=== PATIENT | female | born 1965 | race Caucasian/White ===

== ENCOUNTER → 2017-02-28 16:33 | Outpatient (CLI) | payer MEDICAID | END | disposition home or self-care (01) | LOC: D.MAMMO 16:00 | DX: Z12.31 Encounter for screening mammogram for malignant neoplasm of breast (principal) ==

== ENCOUNTER 2018-09-11 11:26 | Observation (INO) | payer OTHER ==
[~2018-09-11] VITALS: Ht 167.6 cm; Wt 101.8 kg
--- NOTE | ~2018-09-11 | EC ---
PATIENT:OLIVIA MACKEY DATE OF SERVICE: 09/11/18 SEX: F MEDICAL RECORD: [id number] DATE OF : 67 [facility] AGE OF PATIENT: 53 ADMISSION DATE: 09/11/18 REFERRING PHYSICIAN: INTERPRETING PHYSICIAN: NIURKA BLANCHARD MD ECHOCARDIOGRAM REPORT ECHO CHARGES 4 ECHO COMPLETE Date: 09/11/18 CLINICAL DIAGNOSIS: CP ECHOCARDIOGRAPHIC MEASUREMENTS (adult normal given) AC root (d.<3.7cm) 2.4 cm LV Septum d (<1.2 cm> 0.8 cm Valve Excursion 1.7 cm LV Septum (systole) 1.4 cm Left Atria (s.<4.0cm> 3.2 cm LVPW d(<1.2cm) 0.8 cm RV (d.<2.3cm) 2.8 cm LVPW (sytole) 1.4 cm LV diastole(<5.6CM) 4.9 cm MV E-F(>70mm/sec) cm LV systole 3.0 cm LVOT Diameter 1.9 cm MV exc.(>10mm) cm Est.ejection fraction (50-75%) % DOPPLER: LVIT cm/sec A 62 cm/sec E 90 cm/sec LA cm/sec RVSP 28.9 mmHg LVOT 90 cm/sec AOP1/2T m/s Asc. Ao 126 cm/sec RVOT 51 cm/sec RA cm/sec PA 82 cm/sec AV Gradient Peak 6.3 mmHg AV Mean 3.3 mmHg AV Area 2.0 cm MV Gradient Peak 3.7 mmHg MV Mean 1.0 mmHg MV Area cm COMMENTS: Waste Treatment Operator: Maryanne MARSHALLRANJEETLAUREL [facility] Child Welfare Manager: 1 Dr. Blanchard TAPE# POACS Pericardial Effusion N DATE OF SERVICE: 09/11/2018 PROCEDURE: Echocardiogram. FINDINGS: 1. Left ventricular chamber size is within normal limits. Left ventricular systolic function is normal. Overall ejection fraction estimated at 60%. 2. Left atrium, right atrium, and right ventricle chamber sizes are within normal limits. 3. Valvular structures have normal structure and motion. ECHOCARDIOGRAM REPORT [id number] OLIVIA MACKEY 4. Doppler interrogation reveals trace mitral regurgitation, mild tricuspid regurgitation, no other valvular insufficiency or stenosis. Pulmonary systolic pressure is normal at 29 mmHg. 5. No evidence of pericardial effusion or left ventricular thrombus. TRANSINT:[id number] Voice Confirmation ID: [id number] DOCUMENT ID: [id number] NIURKA BLANCHARD MD CC: [id number] DICTATION DATE: 09/12/18 1047 RETAIL EVENT ASSISTANT: 09/12/18 1317 ADM IN [facility] [address] [id number]
--- NOTE | ~2018-09-11 | OP ---
PATIENT NAME: OLIVIA MACKEY MEDICAL RECORD: [id number] :67 LOCATION:[facility] ADMISSION DATE:09/11/18 SURGEON: NIURKA BLANCHARD MD DATE OF OPERATION: 09/12/2018 PROCEDURES: 1. PTCA and stent of LAD. 2. Left heart catheterization. 3. Selective coronary angiography. 4. Left ventriculogram. INDICATIONS: Angina and coronary artery disease. PROCEDURE IN DETAIL: After informed consent was obtained and after a detailed explanation of the risks, benefits as well as alternative therapies, the patient elected to proceed with angiogram and angioplasty. The right radial area was prepped and draped in normal sterile fashion. Right radial artery was cannulated via modified Seldinger technique with placement of 6-Croatian sheath. All catheters exchanged through this sheath. FINDINGS: Left ventriculogram was performed in standard 30-degree TRONCOSO view, reveals good cardiac wall motion throughout all segments. Overall ejection fraction estimated 60%. SELECTIVE CORONARY ANGIOGRAPHY: 1. Left main is with no significant angiographic disease. 2. Left anterior descending has 75% to 80% stenosis in the mid vessel. 3. Left circumflex has mild irregularities, but no flow-limiting stenosis. 4. Right coronary has mild irregularities, but no flow-limiting stenosis. PTCA AND STENT OF THE LAD: The stent used was a 3.0 x 15-mm Cobra. Result was 0% residual stenosis. OVERALL IMPRESSION: Successful PTCA and stent of the LAD going from 75% to 80% initial stenosis to 0% residual. TRANSINT:[id number] Voice Confirmation ID: [id number] DOCUMENT ID: [id number] NIURKA BLANCHARD MD CC: [id number] DICTATION DATE: 09/12/18 1157 NET SORTER: 09/12/18 1403 ADM IN [facility] [address] [place] [address]
--- NOTE | ~2018-09-11 | HEMODYNAMI ---
PATIENT:OLIVIA MACKEY MEDICAL RECORD: [id number] : 67 LOCATION:[address] ADMISSION DATE: 09/11/18 Generatedon:09/12/201812:01 Patient name: OLIVIA MACKEY Patient #: [id number] SSN: : 1965 Date of study: 09/12/2018 Page: Of Hemodynamic Procedure Report Patient Data Patient Demographics Procedure consent was obtained First Name: OLIVIA Gender: Female Last Name: NARENDRA : 1965 Patient #: [id number] Age: 53 year(s) Race: Unknown Additional ID: [id number] Contact details Address: [address] [place] [address] State: [place] City: [facility] Zip code: [address] Past Medical History Allergies: No known allergies Admission Admission Data Admission Date: 09/11/2018 Admission Time: 12:14 Room #: [facility] Height (in.): 65.75 BSA: 2.1 (m2) Height (cm.): 167 BMI: 36.57 (kg/m2) Weight (lbs.): 224.87 Weight (kg.): 102 Lab Results Lab Result Date: 09/12/2018 Lab Result Time: 0:00 Biochemistry Name Units Result Min Max BUN mg/dl 17 --(---*)-- 7 18 Creatinine mg/dl 0.8 --(-*--)-- 0.6 1.3 CBC Name Units Result Min Max Hematocrit % 41.1 -*(----)-- 42 54 Hemoglobin g/dl 13.4 -*(----)-- 13.5 17.5 Procedure Procedure Types Cath Procedure Diagnostic Procedure C [facility] w/Coronaries Sedation Charges Moderate Sedation up to 15 minutes PCI Procedure Coronary Stent Coronary Stent Initial Procedure Description Procedure Date Procedure Date: 09/12/2018 Procedure Start Time: 11:43 Procedure End Time: 11:56 Procedure Staff Name Function Dori Sumner RT Scrub Derrick Silverio RN Nurse Dominik Blanchard MD Performing Physician Lisa Elise RT Monitor Procedure Data Cath Procedure Fluoroscopy Diagnostic fluoroscopy Total fluoroscopy Time: 3.3 time: 3.3 min min Diagnostic fluoroscopy Total fluoroscopy dose: 662 dose: 662 mGy mGy Contrast Material Contrast Material Type Amount (ml) Isovue 300 71 Entry Location Entry Primary Successful Side Size Upsize Upsize Entry Closure Succes sful Closure Location (Fr) 1 (Fr) 2 (Fr) Remarks Device Remarks Radial Right 6 Fr artery Short Estimated blood loss: 10 ml Diagnostic catheters Device Type Used For End Catheter Placement DIAGNOSTIC [place] 110cm 5 Procedure Fr catheter ([id number]) Procedure Complications No complications Procedure Medications Medication Administration Route Dosage Oxygen etCO2 Nasal cannula 2 l/min Lidocaine 2% added to field 20 Heparin Flush Bag added to field 2 bags (1000units/500ml NS) 0.9% NaCl I.V. 100 ml/hr Radial Cocktail I.A. 1 syringe (Verapamil 2mg/Nitro 400mcg/Heparin 1500units) Versed I.V. 1 mg Fentanyl I.V. 50 mcg Versed I.V. 1 mg Fentanyl I.V. 50 mcg Heparin Bolus I.V. 4000 units Integrilin (Bolus I.V. 9 ml 2mg/ml) Versed I.V. 1 mg Fentanyl I.V. 50 mcg Plavix P.O. 600 mg Hemodynamics Rest BSA: 2.1 (m2) HGB: 13.4 (g/dl) O2 Consumption: Estimated: 207.69 (ml/min) O2 Con sumption indexed: Estimated:98.9 (ml/min/m) Heart Rate: 74 (bpm) Snapshots Pre Cath Intra NCS Post Cath Vital Signs Time Heart Resp SPO2 etCO2 NIBP (mmHg) Rhythm Pain Sedation Rate (ipm) (%) (mmHg) Status Level (bpm) 11:33:43 73 16 97 43.3 136/70(112) NSR 0 (11) 10(A) , No pain 11:38:03 69 13 95 46.2 132/65(96) NSR 0 (11) 10(A) , No pain 11:42:22 64 14 94 42.6 123/64(86) NSR 0 (11) 9(A) , No pain 11:46:34 79 17 95 43.3 118/65(94) NSR 0 (11) 9(A) , No pain 11:51:37 70 15 94 0 122/73(97) NSR 0 (11) 9(A) , No pain 11:55:51 69 18 95 45.5 137/63(101) NSR 0 (11) 10(A) , No pain Medications Time Medication Route Dose Verified Delivered Reason Not es Effectiveness by by 11:35:05 Oxygen etCO2 2 l/min Dominikjurgen Manie used for Nasal Santo Silverio RN procedure cannula 11:35:43 Lidocaine 2% added 20ml Dominik Lehman for local to vial Santo Blanchard MD anesthetic field 11:35:50 Heparin Flush added 2 bags Dominik Lehman used for Bag to Santo Blanchard MD procedure (1000units/500ml field NS) 11:35:59 0.9% NaCl I.V. 100 Dominik Buffie Per physician ml/hr Santo Silverio RN 11:36:53 Versed I.V. 1 mg Dominik Manie for sedation Santo Silverio RN 11:36:59 Fentanyl I.V. 50 mcg Dominik Manie for sedation Santo Silverio RN 11:40:42 Versed I.V. 1 mg Dominik Buffie for sedation Santo Silverio RN 11:40:46 Fentanyl I.V. 50 mcg Dominik Manie for sedation Santo Silverio RN 11:43:38 Radial Cocktail I.A. 1 Dominik Gudinorey for (Verapamil syringe Santo Blanchard MD vasodilation 2mg/Nitro 400mcg/Hepari 11:44:20 Versed I.V. 1 mg Dominik Buffie for sedation Santo Silverio RN 11:44:24 Fentanyl I.V. 50 mcg Dominik Manie for sedation Santo Silverio RN 11:47:19 Heparin Bolus I.V. 4000 Dominik Buffie for carley ified units Santo Silverio RN anticoagulation with dr blanchard 11:48:27 Integrilin I.V. 9 ml Dominik Meza for was katerine 1 (Bolus 2mg/ml) Santo Silverio RN antiplatelet ml of therapy vial 11:55:04 Plavix P.O. 600 mg Dominik Meza for Santo Silverio RN antiplatelet therapy Procedure Log Time Note 11:14:55 Signed procedure consent form obtained from patient. 11:14:57 Time tracking: Regular hours (M-F 7:00 - 5:00) 11:14:57 Diagnostic Cath status Urgent 11:15:02 Plan of Care:Hemodynamics will remain stable., Cardiac rhythm will remain stable., Comfort level will be maintained., Respiratory function will remain adequate., Patient/ family verbilizes understanding of procedure., Procedure tolerated without complication., Recovers from procedure without complications.. 11:17:20 Patient allergic to No known allergies 11:17:41 Lab Result : Hemoglobin 13.4 g/dl 11::41 Lab Result : Hematocrit 41.1 % 11:17:41 Lab Result : BUN 17 mg/dl 11:17:41 Lab Result : Creatinine 0.8 mg/dl 11:17:49 Patient Weight : 224.87 lbs 11:17:53 Patient Height : 65.75 inches 11:18:21 Derrick Silverio RN sent for patient. Start room use. 11:26:14 Patient received from Med II to CCL 2 Alert and oriented. Tansferred to table in Supine position. 11:26:16 Correct patient and procedure confirmed by team. 11:26:16 Warm blankets applied, and richmond hugger turned on for patient comfort. 11:26:17 ECG and BP/O2 sat monitors applied to patient. 11:32:31 Full Disclosure recording started 11:32:35 Vital chart was started 11:33:50 Baseline sample Acquired. 11:33:53 Rhythm: sinus rhythm 11:33:56 Pre-op teaching completed and patient verbalized understanding. 11:33:56 Pre-procedure instructions explained to patient. 11:33:59 Family in patients room. 11:34:00 Patient NPO since Midnight. 11:34:02 Is patient on blood thinner?No 11:34:03 Patient diabetic? No. 11:34:33 Is the patient allergic to Iodine/contrast media? No. 11:34:36 Previous problem with sedation/anesthesia? No ? 11:34:37 Snore? Yes 11:34:39 Sleep apnea? No 11:34:41 Deviated septum? No 11:34:42 Opens mouth fully? Yes 11:34:44 Sticks out tongue? Yes 11:34:46 Airway obstruction? No ? 11:34:48 Dentures? No ? 11:34:51 Patient not . Patient has had hysterectomy. 11:34:56 Modified Obdulio's test Ulnar < 7 seconds 11:34:58 Patient pain scale 0/10 ?. 11:35:02 IV patent on arrival in left forearm with 0.9% NaCl at [facility]. 11:35:04 Lab results completed and on chart. 11:35:05 Oxygen 2 l/min etCO2 Nasal cannula was administered by Derrick Silverio RN; used for procedure; 11:35:06 Right Radial & Right Groin area was prepped with chlora-prep and draped in sterile fashion 11:35:07 Alarms reviewed by R. N. 11:35:08 Sharps counted by scrub and verified by R.N. 11:35:43 Lidocaine 2% 20ml vial added to field was administered by Dominik Blanchard MD; for local anesthetic; 11:35:50 Heparin Flush Bag (1000units/500ml NS) 2 bags added to field was administered by Dominik Blanchard MD; used for procedure; 11:35:59 0.9% NaCl 100 ml/hr I.V. was administered by Derrick Silverio RN; Per physician; 11:36:06 --------ALL STOP TIME OUT------ 11:36:07 Final Timeout: patient, procedure, and site verified with staff and physician. All members of the team are in agreement. 11:36:08 Right Radial & Right Groin site verified by team. 11:36:10 Maximum allowable Isovue 300 dose 300ml. Physician notified. (300ml for normal creatinines. For patients with creatinine of 1.7 or higher multiply weight(kg) x 5 divided by creatinine.) 11:36:13 Fire Safety Assessment: A--An alcohol-based skin anteseptic being used preoperatively., C--Open oxygen or nitrous oxide is being used., D--An ESU, laser, or fiber-optic light is being used. 11:36:17 Sedation plan: IV Moderate Sedation Medication:Versed, Fentanyl 11:36:20 Physical assessment completed. ASA score P 2 - A patient with mild systemic disease as per Dominik Blanchard MD. 11:36:53 Versed 1 mg I.V. was administered by Derrick Silverio RN; for sedation; 11:36:59 Fentanyl 50 mcg I.V. was administered by Derrick Silverio RN; for sedation; 11:40:28 Use device set Radial Dx or PCI 11:40:29 Bag Decanter (2001S) opened to sterile field. 11:40:29 ACIST Syringe (27228) opened to sterile field. 11:40:30 ACIST Hand Control (21557) opened to sterile field. 11:40:31 Tegaderm 4 x 4 (1626W) opened to sterile field. 11:40:31 ACIST Manifold (46953) opened to sterile field. 11:40:33 DIAGNOSTIC WIRE .035 260cm J wire (432437) opened to sterile field. 11:40:33 Medline Cath Pack ([id number]) opened to sterile field. 11:40:34 MBrace Wrist Support (308362768) opened to sterile field. 11:40:35 SHEATH 6FR Slender (23-8600) opened to sterile field. 11:40:42 Versed 1 mg I.V. was administered by Derrick Silverio RN; for sedation; 11:40:46 Fentanyl 50 mcg I.V. was administered by Derrick Silverio RN; for sedation; 11:43:14 Procedure started. 11:43:16 Zero performed for pressure channel P1 11:43:22 Local anesthetic to right radial artery with Lidocaine 2% by Dominik Blanchard MD.INITIAL ACCESS ONLY 11:43:29 A 6 Fr Short sheath was inserted into the Right Radial artery 11:43:38 Radial Cocktail (Verapamil 2mg/Nitro 400mcg/Heparin 1500units) 1 syringe I.A. was administered by Dominik Blanchard MD; for vasodilation; 11:43:44 A DIAGNOSTIC [place] 110cm 5 Fr catheter (421474) was advanced over the wire and used for Procedure. 11:43:52 LV gram done using TRONCOSO 11:43:54 Injector settings: Ml/sec: 5, Volume: 15, 11:44:18 EF : 60 % 11:44:20 Versed 1 mg I.V. was administered by Derrick Silveroi RN; for sedation; 11:44:24 Fentanyl 50 mcg I.V. was administered by Derrick Silverio RN; for sedation; 11:44:37 RCA angiography performed. 11:45:13 LCA angiography performed. 11:45:24 Catheter exchanged over wire. 11:46:06 CHOICE PT Extra Support 182cm wire ([id number]) opened to sterile field. 11:46:06 INFLATOR Merit BasixCompak (LU5013) opened to sterile field. 11:46:07 GUIDE 6FR XBLAD 3.5 catheter (84637166) opened to sterile field. 11:46:38 6 Fr XBLAD 3.5 guide catheter was inserted over the wire 11:47:19 Heparin Bolus 4000 units I.V. was administered by Derrick Silverio RN; for anticoagulation; verified with dr blanchard 11:48:00 CHOICE ES 182 wire advanced. 11:48:27 Integrilin (Bolus 2mg/ml) 9 ml I.V. was administered by Derrick Silverio RN; for antiplatelet therapy; wasted 1 ml of vial 11:48:40 CHOICE PT Extra Support 182cm wire ([id number]) opened to sterile field. 11:48:50 Wire removed. 11:49:04 NEW WIRE ADVANCED 11:49:36 Wire advanced across lesion. 11:51:36 Place stent Inflation Number: 1 A COBRA RX 3.0 X 15 Stent was prepped and advanced across the Mid LAD. The stent was deployed at 11 CHRISTOPHER for 0:00 (min:sec). 11:51:55 Inflation number: 2 The stent balloon was then re-inflated across the Mid LAD to 15 CHRISTOPHER for 0:00 (min:sec). 11:52:01 Wire removed. 11:52:01 Stent catheter was removed intact over wire. 11:52:18 Guide catheter removed. 11:52:50 Procedure ended.(Physican Out) 11:54:00 TR BAND Standard ([id number]) opened to sterile field. 11:54:07 Fluoroscopy time 03.30 minutes. 11:54:11 Flurop Dose total: 662 11:54:11 Fluoroscopy dose: 662 mGy 11:54:14 Contrast amount:Isovue 300 71ml. 11:54:15 Sharps counted by scrub and verified by R.N. 11:54:17 TR band inflated with 11cc of air. 11:54:20 Post-procedure physical assessment completed. ASA score P 2 - A patient with mild systemic disease as per Dominik Blanchard MD. 11:54:24 Post procedure rhythm: sinus rhythm 11:54:26 Estimated blood loss: 10 ml 11:54:27 Patient needs reinforcement of post procedure teaching. 11:54:27 Post procedure instruction explained to patient.Patient verbalizes understanding. 11:54:48 Procedure type changed to Cath procedure, Diagnostic procedure, LHC, LHC w/Coronaries, Sedation Charges, Moderate Sedation up to 15 minutes, PCI procedure, Coronary Stent, Coronary Stent Initial 11:55:04 Plavix 600 mg P.O. was administered by Derrick Silverio RN; for antiplatelet therapy; 11:55:05 Procedure and supply charges have been captured, reviewed, submitted and are correct. 11:55:08 Procedure Complication : No complications 11:56:33 Vital chart was stopped 11:56:33 See physician's report for complete and final results. 11:56:35 Report given to Pre/Post Procedure Room. 11:56:37 Patient transfered to Pre/Post Procedure Room with Bed. 11:56:38 Procedure ended. 11:56:38 Full Disclosure recording stopped 11:56:41 End room use (Document Last) Intervention Summary Intervention Notes Time ActionType Lesion and Equipment Action# Pressure Duration Attributes Used 11:51:36 Place stent Mid LAD COBRA RX 1 11 00:00 3.0 X 15 Stent 11:51:55 Reinflate Mid LAD COBRA RX 2 15 00:00 stent 3.0 X 15 balloon Stent Device Usage Item Name Manufacture Quantity Catalog Number Hospital Part Current Minimal Lot# / Charge Number Stock Stock Serial# Code ACIST Syringe Acist 1 42063 122994 588766 889015 20 (44890) Medical Systems Inc Bag Decanter Microtek 1 2001S 923304 01647 440261 5 (2001S) Medical Inc. ACIST Hand Acist 1 48324 366897 415577 123506 5 Control Medical (34026) Systems Inc ACIST Manifold Acist 1 21459 039016 905431 563873 5 (94462) Medical Systems Inc Tegaderm 4 x 4 3M 1 1626W 878660 908629 083472 5 (1626W) Medline Cath Medline 1 [id number] 322032 61137 695462 5 Pack ([id number]) DIAGNOSTIC [place] 1 046878 049851 797137 712991 30 WIRE .035 260cm J wire (139698) MBrace Wrist Advanced 1 140-0250-00 740405 19717 924477 5 Support Vascular ([id number]) Dynamics SHEATH 6FR Terumo 1 [id number] 625350 769109 896845 5 Slender (80-1900) DIAGNOSTIC Terumo 1 04-9480 543744 370561 167444 5 [place] 110cm 5 Fr catheter (305892) INFLATOR Merit Merit 1 TT3168 248013 044340 475722 15 [facility] Medical (DJ3733) CHOICE PT [place] 2 [id number] 330856 835997 923022 5 Extra Support Scientific 182cm wire ([id number]) GUIDE 6FR Cardinal 1 [id number] 970010 371183 845214 10 XBLAD 3.5 Health catheter (26004595) COBRA RX 3.0 X Celonova 1 [id number] 270027 [id number] 288132 0 [id number] 15 stent Biosciences (218-02-74106) TR BAND Terumo 1 [id number] 856275 815576 900331 40 Standard ([id number]) Signature Audit [place] Stage Time Signature Unsigned Intra-Procedure 09/12/2018 Lisa Elise 11:57:01 AM RT(R) RT(R) 09/12/2018 11:59:37 AM Intra-Procedure 09/12/2018 Lisa Elise 12:01:05 PM RT(R) Signatures Monitor : Lisa Elise Signature : RT Date : Time : [address] [place] [address]
--- NOTE | ~2018-09-11 | ST ---
PATIENT:OLIVIA MACKEY MEDICAL RECORD: [id number] SEX: F [facility] ORDER #: ADMISSION DATE: 09/11/18 AGE OF PATIENT: 53 REFERRING PHYSICIAN: INTERPRETING PHYSICIAN: NIURKA BLANCHARD MD DATE OF SERVICE: 09/12/2018 PROCEDURE: Exercise stress test INDICATION: Chest pain compatible with angina. She was exercised on standard Mendez protocol for 3 minutes, terminated due to ST changes and chest pressure. She did develop chest pressure compatible with angina just like that, they brought her in, at the 3-minute david with [address] depression. OVERALL IMPRESSION: Positive for inducible ischemia stage I Mendez with ST depression and reproducibility of anginal symptomatology. This puts her at high risk. We would proceed with coronary angiography as a followup study. TRANSINT:[id number] Voice Confirmation ID: [id number] DOCUMENT ID: [id number] NIURKA BLANCHARD MD CC: [id number] DICTATION DATE: 09/12/18 1005 INTERNATIONAL TRADE TEACHER: 09/13/18 0511 DIS IN 09/12/18 [facility] [address] [id number]
[2018-09-11] MEDS ORDERED: PROZAC10 MG PO (11:35)
[2018-09-11] MEDS ORDERED: LISINOPRIL10 MG PO (11:35)
[2018-09-11] MEDS ORDERED: OMEPRAZOLE20 M1 PO (11:36)
[2018-09-11] MEDS ORDERED: NAPROSYN500 MG PO (11:36)
[2018-09-11 11:57] LABS: BASOPHILS 0.4 % (0-2); EOSINOPHILS 3.1 % (0-7); HEMATOCRIT 44.3 % (36.0-48.0); HEMOGLOBIN 14.5 g/dL (12-16); IMMATURE GRANULOCYTES 0.1 % (0-5); LYMPHOCYTES 38.7 % (15-50); MCH 31.6 pg (26.0-34.0); MCHC 32.7 g/dL (31.0-37.0); MCV 96.5 fL (80.0-100.0); MEAN PLATELET VOLUME 10.4 fL (7.4-10.4); MONOCYTES 5.4 % (2-11); NEUTROPHILS 52.3 % (40-80); PLATELET COUNT 244 10x3/uL (130-400); RBC 4.59 10x6/uL (4.00-5.40); RDW 13.9 % (11.5-14.5)
[2018-09-11 12:09] LABS: APTT 35.6 SECONDS (22.8-39.4); INR 0.99 (0.85-1.17); PROTIME 12.6 SECONDS (11.6-15.0)
[2018-09-11 12:10] VITALS: BP 133/68
[2018-09-11 12:14] LABS: ALKALINE PHOSPHATASE 82 U/L (46-116); ALT (SGPT) 34 U/L (10-68); BILIRUBIN - TOTAL 0.34 mg/dL (0.2-1.3); CALC OSMOLALITY 282 mosm/kg (275-300); CALCIUM 9.5 mg/dL (8.5-10.1); CARBON DIOXIDE 29.2 mmol/L (21.0-32.0); CHLORIDE - SERUM 105 mmol/L (98-107); CREATININE - SERUM 0.9 mg/dL (0.6-1.3); GLUCOSE 98 mg/dL (74-106); POTASSIUM - SERUM 4.2 mmol/L (3.5-5.1); PROTEIN - SERUM 7.2 g/dL (6.4-8.2); SODIUM 141 mmol/L (136-145); UREA NITROGEN 19 mg/dL (7-18); eGFR NON AFRICAN AMERICAN 70 mL/min (90-120)
[2018-09-11 12:20] VITALS: BP 137/82
[2018-09-11 12:25] LABS: CKMB 1.4 U/L (0.0-3.6); CREATINE KINASE 125 UL (21-215); TROPONIN-I < 0.017 ng/mL (0.000-0.060)
[2018-09-11 12:40] VITALS: BP 138/74
--- NOTE | 2018-09-11 13:20 | NUR ---
RECEIVED PT VIA W/C FROM ER TO ROOM 2119 AAOX4 RESP UNLABORED SKIN W/D COLOR WNL DENIES ANY PAIN AT THIS TIME VSS SALINE LOCK INTACT TO LT WRIST WITH 20 GA IV CATHETER SITE FREE OF REDNESS OR EDEMA
[2018-09-11] MEDS ORDERED: NAPROXEN SODIU550 M1 PO (13:40)
[2018-09-11 13:43] VITALS: BP 131/86; Ht 167.6 cm; Wt 101.8 kg
[2018-09-11 15:40] VITALS: BP 147/70
[2018-09-11 18:42] LABS: CREATINE KINASE 98 UL (21-215); TROPONIN-I < 0.017 ng/mL (0.000-0.060)
--- NOTE | 2018-09-11 19:46 | NUR ---
RESUMING PATIENT CARE. PATIENT IS ALERT AND ORIENTED. RESTING COMFORTABLY INBED. RESPIRATIONS ARE EVEN AND UNLABORED. NO S/S OF DISTRESS. NO C/O PAIN. NEEDS MET. CALL LIGHT WITHIN REACH. WILL CPOC.
[2018-09-11 20:00] VITALS: BP 127/62
[2018-09-12] VITALS: BP 134/67
[2018-09-12 00:52] LABS: CKMB 1.1 U/L (0.0-3.6); CREATINE KINASE 90 UL (21-215)
[2018-09-12 00:56] LABS: TROPONIN-I < 0.017 ng/mL (0.000-0.060)
[2018-09-12 04:00] VITALS: BP 127/67
[2018-09-12 04:38] LABS: BASOPHILS 0.3 % (0-2); EOSINOPHILS 2.9 % (0-7); HEMATOCRIT 41.1 % (36.0-48.0); HEMOGLOBIN 13.4 g/dL (12-16); IMMATURE GRANULOCYTES 0.2 % (0-5); LYMPHOCYTES 36.2 % (15-50); MCH 31.3 pg (26.0-34.0); MCHC 32.6 g/dL (31.0-37.0); MEAN PLATELET VOLUME 10.6 fL (7.4-10.4); MONOCYTES 6.9 % (2-11); NEUTROPHILS 53.5 % (40-80); PLATELET COUNT 249 10x3/uL (130-400); RBC 4.28 10x6/uL (4.00-5.40); RDW 13.8 % (11.5-14.5)
[2018-09-12 04:56] LABS: WBC 9.6 10x3/uL (4.8-10.8)
[2018-09-12 04:59] LABS: ALBUMIN 3.3 g/dL (3.4-5.0); ALKALINE PHOSPHATASE 73 U/L (46-116); ALT (SGPT) 30 U/L (10-68); BILIRUBIN - TOTAL 0.26 mg/dL (0.2-1.3); CALC OSMOLALITY 284 mosm/kg (275-300); CALCIUM 8.7 mg/dL (8.5-10.1); CARBON DIOXIDE 28.2 mmol/L (21.0-32.0); CHLORIDE - SERUM 107 mmol/L (98-107); CREATININE - SERUM 0.8 mg/dL (0.6-1.3); GLUCOSE 98 mg/dL (74-106); POTASSIUM - SERUM 3.9 mmol/L (3.5-5.1); PROTEIN - SERUM 6.4 g/dL (6.4-8.2); SODIUM 142 mmol/L (136-145); UREA NITROGEN 17 mg/dL (7-18); eGFR NON AFRICAN AMERICAN 80 mL/min (90-120)
--- NOTE | 2018-09-12 07:25 | NUR ---
ASSESSMENT DONE. DENIES NEEDS.
[2018-09-12 07:47] VITALS: BP 126/65
--- NOTE | 2018-09-12 11:25 | NUR ---
TO SWIMMING COACH OR INSTRUCTOR PER BED
--- NOTE | 2018-09-12 11:56 | HP ---
PATIENT: OLIVIA MACKEY MEDICAL RECORD: [id number] ACCOUNT: [id number] LOCATION:[address] : 67 ADMISSION DATE: 09/11/18 PCP: PHILIP MCGRAW DO HISTORY AND PHYSICAL EXAMINATION ADMITTING DIAGNOSES: 1. Angina. 2. Hypertension. 3. Hyperlipidemia. 4. Smoking history. 5. Family history of coronary artery disease. 6. Gastroesophageal reflux disease. HISTORY OF PRESENT ILLNESS: Mrs. Mackey presents with increasing episodes of chest pain and chest discomfort compatible with angina, dull aching heaviness across the anterior chest with any exertion, it has been going on for approximately 2 months, less and less exertion, have been able to bring on the pain and discomfort. She was seen by her primary doctor, found to be hypertensive, placed on lisinopril with this. Heart rate is in the 60s. With the lisinopril her systolic blood pressure was in the 120s; however, her chest pain syndrome continued to escalate. She had the addition of nitrates from the Emergency Room yesterday. She has continued to have the symptomatology this morning. She has no dysrhythmias. Her EKG is overall normal. PHYSICAL EXAMINATION: GENERAL APPEARANCE: Well-nourished, well-developed, appears stated age. Level of distress, comfortable. PSYCHIATRIC: Mental status, alert, normal affect. Orientation, oriented to time, place and person. EYES: Lids and conjunctiva, noninjected. No discharge, no pallor. ENT: Lips, teeth, gums, normal dentition. Oropharynx, no cyanosis, no pallor. NECK: Carotid arteries, bilateral normal upstroke, no bruits, no thrills. JUGULAR VEINS: No jugular venous pressure or distention. CERVICAL LYMPH NODES: Nontender, nonenlarged. THYROID: Not enlarged. Nontender. No nodules. LUNGS: Respiratory effort, unlabored. CHEST: Normal curvature. No thoracic deformity. No chest wall tenderness. Percussion, resonant. Auscultation, clear. No wheezes, no rales, no rhonchi. CARDIOVASCULAR: Precordial exam, nondisplaced. No heaves or pericardial thrills. Rate and rhythm, regular. Heart sounds, normal S1, normal S2. No S3, no gallop, no rub. Systolic murmur, not heard. Diastolic murmur, not heard. EXTREMITIES: No cyanosis, no edema. Peripheral pulses, full and equal in all extremities, except as noted. No bruits appreciated. ABDOMEN: Soft, nondistended. Normal aorta. No bruit. Nontender. No masses. Liver, nontender, no hepatomegaly. Spleen, nontender, no splenomegaly. MUSCULOSKELETAL: No joint tenderness. No joint swelling. No erythema. NEUROLOGICAL: Normal gait, normal strength, normal tone. SKIN: Warm and dry. OVERALL IMPRESSION: Chest discomfort compatible with angina with minimal exertion, continues this morning despite lisinopril and nitrates with optimal heart rate and blood pressure control. As there is little room for continued medical management, we will do an exercise stress test for risk stratification. Further care depends upon the findings of the stress test. HISTORY AND PHYSICAL [id number] OLIVIA MACKEY TRANSINT:[id number] Voice Confirmation ID: [id number] DOCUMENT ID: [id number] NIURKA BLANCHARD MD at 1156 CC: [id number] DICTATION DATE: 09/12/18942 PROFESSOR OF SURGERY: 09/12/18 [address] [facility] [address] [id number]
--- NOTE | 2018-09-12 12:10 | NUR ---
PT ARRIVED VIA STRETCHER FROM ATTORNEY LAW CLERK FOR RECOVERY. PT DROWSY BUT VERBALLY AROUSABLE. TR BAND AND IMMOBILIZER TO R WRIST, DRESSING CDI NO BLEEDING OR SWELLING NOTED. HR NSR RATE 77, BP 120/68, O2 SAT 96 ON 2L/NC . R ARM PINK AND WARM, CAP REFILL BRISK. IV PATENT INFUSING VIA ORDERS. CALL LIGHT IN REACH. PT DENIES PAIN OR DISCOMFORT.
[2018-09-12] MEDS ORDERED: PLAVIX75 MG PO (12:16)
[2018-09-12] MEDS ORDERED: BAYER CHEWABLE81 MG PO (12:16)
--- NOTE | 2018-09-12 12:30 | NUR ---
PT RESTING COMFORTABLY. R WRIST DRESSING CDI NO BLEEDING OR SWELLING NOTED. PT DENIES PAIN OR NEEDS. WATER GIVEN PER REQUEST. CALL LIGHT IN REACH
--- NOTE | 2018-09-12 13:04 | NUR ---
PT SITTING UP EATING LUNCH TRAY. TR BAND IN PLACE DRESSING REMAINS CDI NO BLEEDING OR HEMATOMA NOTED. AT BEDSIDE, CALL LIGHT IN REACH
--- NOTE | 2018-09-12 13:30 | NUR ---
PT RESTING COMFORTABLY, TOLERATED LUNCH W/O NAUSEA. PT DENIES PAIN OR DISCOMFORT. TR BAND AND IMMOBILIZER IN PLACE, DRESSING CDI NO BLEEDING OR HEMATOMAN NOTED. ARM PINK AND WARM, CAP REFILL BRISK. CALL LIGHT IN REACH, AT BEDSIDE.
--- NOTE | 2018-09-12 14:00 | NUR ---
NO CHANGE IN CONDITION, PT RESTING W/O COMPLAINTS. R WRIST W/O BLEEDING OR SWELLING. DRESSING REMAINS CDI. CALL LIGHT IN REACH
--- NOTE | 2018-09-12 14:27 | NUR ---
PT SITTING UP, TR BAND IN PLACE NO BLEEDING OR SWELLING NOTED AROUND SITE. R ARM PINK AND WARM, CAP REFILL BRISK. CALL LIGHT IN REACH, AT BEDSIDE
--- NOTE | 2018-09-12 15:00 | NUR ---
4CC AIR REMOVED FROM TR BAND, NO BLEEDING OR SWELLING NOTED. PT DENIES PAIN OR DISCOMFORT. CALL LIGHT IN REACH
--- NOTE | 2018-09-12 15:15 | NUR ---
3cc OF AIR REMOVED FROM TR BAND. NO BLEEDING/HEMATOMA NOTED.
--- NOTE | 2018-09-12 15:29 | NUR ---
DISCUSSED DISCHARGE INSTRUCTIONS WITH PT AND PT'S FAMILY. THEY VOICED UNDERSTANDING. NO OTHER NEEDS AT THIS TIME. ALL QUESTIONS ANSWERED. 3cc OF AIR REMOVED FROM TR BAND. NO BLEEDING/HEMATOMA NOTED. FAMILY AT BEDSIDE.
--- NOTE | 2018-09-12 15:42 | NUR ---
LEFT AC PIV D/C'D WITH CATH TIP INTACT. PT TOLERATED WELL. 3cc OF AIR REMOVED FROM TR BAND. PT TOLERATED WELL. NO BLEEDING/HEMATOMA NOTED. PT INSTRUCTED TO GET UP AND DRESSED.
--- NOTE | 2018-09-12 15:45 | NUR ---
PT AMBULATED TO RESTROOM. VOIDED WITHOUT DIFFICULTY. BACK TO ROOM. RIGHT RADIAL TR BAND REMOVED. NO BLEEDING/HEMATOMA NOTED. DRESSING APPLIED. RIGHT WRIST BRACE IN PLACE. PT INSTRUCTED TO KEEP BRACE ON FOR 2 HOURS ONCE SHE ARRIVES HOME AND THEN MAY REMOVE. SHE VOICED UNDERSTANDING.
--- NOTE | 2018-09-12 16:00 | NUR ---
PT TAKEN OUT TO VEHICLE BY WHEELCHAIR. NO S/S OF DISTRESS NOTED. RIGHT RADIAL DRESSING C/D/I. NO S/S OF HEMATOMA NOTED. ALL BELONGINGS AND PAPERWORK IN HAND.
== END 2018-09-12 16:00 | disposition home or self-care (01) ==
LOC: D.ER 11:26 → D.M2 12:14 → OBSVTIME 12:35 → D.CLR 09-12 12:13
PROVIDERS: Family Medicine; ADMIT Internal Medicine Interventional Cardiology; ATTEND Internal Medicine Interventional Cardiology
DX: I25.119 Atherosclerotic heart disease of native coronary artery with unspecified angina pectoris (principal); I10 Essential (primary) hypertension; E78.5 Hyperlipidemia, unspecified; K21.9 Gastro-esophageal reflux disease without esophagitis; Z87.891 Personal history of nicotine dependence; Z82.49 Family history of ischemic heart disease and other diseases of the circulatory system

== ENCOUNTER 2019-10-02 11:29 | Observation (INO) | payer OTHER ==
[~2019-10-02] VITALS: Ht 167.6 cm; Wt 103.4 kg
--- NOTE | ~2019-10-02 | OP ---
PATIENT NAME: OLIVIA MACKEY MEDICAL RECORD: [id number] :67 LOCATION:D.M2 D.2121 ADMISSION DATE:10/02/19 SURGEON: YUDI WALLACE MD DATE OF OPERATION: 10/03/2019 PROCEDURE: Left heart catheterization, selective coronary angiography, right radial approach. CATHETERS: Radial sheath, Midland catheter. The procedure was well tolerated. The patient returned to the chahal. Sheath was removed. TR band was placed. Left ventriculography in 30-degree TRONCOSO view: Normal wall motion and normal systolic function. CORONARY ANATOMY: LEFT MAIN: Left main is free of disease. LAD: Free of disease in the diagonal system. CIRCUMFLEX: Free of disease in the marginal system. RIGHT CORONARY ARTERY: Dominant artery, gives rise to PDA, free of disease. IMPRESSION: Normal left ventricular function, normal coronary anatomy. TRANSINT:[id number] Voice Confirmation ID: [id number] DOCUMENT ID: [id number] YUDI WALLACE MD CC: [id number] DICTATION DATE: 10/03/19 1139 CORPORATE COMPLIANCE OFFICER: 10/03/19 2200 DIS IN 10/03/19 [facility] [address] [place] [address]
--- NOTE | ~2019-10-02 | HEMODYNAMI ---
PATIENT:OLIVIA MACKEY MEDICAL RECORD: [id number] : 67 [id number] ADMISSION DATE: 10/02/19 Generatedon:10/03/201911:31 Patient name: OLIVIA MACKEY Patient #: [id number] SSN: [id number] : 1965 Date of study: 10/03/2019 Page: Of Hemodynamic Procedure Report Patient Data Patient Demographics Procedure consent was obtained First Name: OLIVIA Gender: Female Last Name: NARENDRA : 1965 Patient #: [id number] Age: 54 year(s) Race: Unknown SSN: [id number] Additional ID: [id number] Contact details Address: [address] [place] [address] State: [place] City: [facility] Zip code: [address] Past Medical History History of disease Date Diagnosis Comments CAD Allergies Allergen Reaction Date Comments Reported Other allergy 10/03/2019 LISINOPRIL Admission Admission Data Admission Date: 10/02/2019 Admission Time: 13:37 Arrival Date: 10/03/2019 Arrival Time: 0:00 Admit Source: Other Insurance Payor: Private Room #: D.2121 health insurance [facility] #: [id number] Height (in.): 66 BSA: 2.11 (m2) Height (cm.): 167.64 BMI: 36.8 (kg/m2) Weight (lbs.): 228 Weight (kg.): 103.42 Lab Results Lab Result Date: 10/03/2019 Lab Result Time: 0:00 Biochemistry Name Units Result Min Max BUN mg/dl 11 --(-*--)-- 7 18 Creatinine mg/dl 1 --(--*-)-- 0.6 1.3 eGFR ml/min 61.25142 *-(----)-- 90 120 NONAFRICAN CBC Name Units Result Min Max Hemoglobin g/dl 14 --(*---)-- 13.5 17.5 Procedure Procedure Types Cath Procedure Diagnostic Procedure LHC LHC w/Coronaries Sedation Charges Moderate Sedation up to 15 minutes Procedure Description Procedure Date Procedure Date: 10/03/2019 Procedure Start Time: 11:15 Procedure End Time: 11:29 Procedure Staff Name Function Israel Morales MD Performing Physician Tiff Luong RT Monitor Rose Marie Cheng RN Nurse Lesa Alarcon RT Scrub Procedure Data Cath Procedure Fluoroscopy Diagnostic fluoroscopy Total fluoroscopy Time: 2.8 time: 2.8 min min Diagnostic fluoroscopy Total fluoroscopy dose: 437 dose: 437 mGy mGy Contrast Material Contrast Material Type Amount (ml) Isovue 300 35 Entry Location Entry Primary Successful Side Size Upsize Upsize Entry Closure Harrison ccessful Closure Location (Fr) 1 (Fr) 2 (Fr) Remarks Device Remarks Radial Right 6 Fr Mechanical artery Short Compression Estimated blood loss: 5 ml Diagnostic catheters Device Type Used For End Catheter Placement DIAGNOSTIC Nottingham 110cm 5 Procedure Fr catheter ([id number]) DIAGNOSTIC JL 3.5 5Fr Left Coronary catheter ([id number]) Angiography Procedure Complications No complications Procedure Medications Medication Administration Route Dosage 0.9% NaCl I.V. 100 ml/hr Oxygen etCO2 Nasal cannula 2 l/min Lidocaine 2% added to field 20 Heparin Flush Bag added to field 2 bags (1000units/500ml NS) Radial Cocktail added to field 1 syringe (Verapamil 2mg/Nitro 400mcg/Heparin 1500units) Versed I.V. 2 mg Fentanyl I.V. 50 mcg Versed I.V. 2 mg Fentanyl I.V. 50 mcg Hemodynamics Rest BSA: 2.11 (m2) HGB: 14 (g/dl) O2 Consumption: Estimated: 200.48 (ml/min) O2 Cons umption indexed: Estimated:95.01 (ml/min/m) Heart Rate: 65 (bpm) Pressure Samples Time Site Value (mmHg) Purpose Heart Use Rate(bpm) 11:22 LV 109/10,15 Snapshot 63 Gradients Valve Time Site Site Mean SEP/DFP Peak To Heart Use 1 2 (mmHg) (sec/min) Peak Rate (mmHg) (bpm) Aortic 11:22 LV AO 64 Snapshots Pre Cath Intra NCS Post Cath Vital Signs Time Heart Resp SPO2 etCO2 NIBP (mmHg) Rhythm Pain Sedation Rate (ipm) (%) (mmHg) Status Level (bpm) 10:58:31 52 10 100 46.6 159/81(136) SB 0 (11) 10(A) , No pain 11:02:53 51 11 97 45.1 135/76(96) SB 0 (11) 10(A) , No pain 11:07:14 50 15 96 36.8 138/74(103) SB 0 (11) 10(A) , No pain 11:11:36 49 14 95 41 132/72(92) SB 0 (11) 10(A) , No pain 11:15:52 59 14 98 41 130/79(102) SB 0 (11) 10(A) , No pain 11:20:02 54 15 97 48 123/80(119) SB 0 (11) 10(A) , No pain 11:24:16 66 15 98 48 121/81(98) SB 0 (11) 10(A) , No pain 11:28:28 66 9 93 42.8 128/76(96) SB 0 (11) 10(A) , No pain Medications Time Medication Route Dose Verified Delivered Reason Notes E ffectiveness by by 10:57:19 0.9% NaCl I.V. 100 Israel Galarzaa used for ml/hr Andrew Prosper procedure MD TALLEY 10:57:27 Oxygen etCO2 2 l/min Israel Galarzaa used for Nasal Andrew Prosper procedure cannula MD [place]LEY 10:57:32 Lidocaine 2% added 20ml Israel Wood for local to vial Andrew Andrew anesthetic field MD BURNS 10:57:36 Heparin Flush added 2 bags Israel Wood used for Bag to Andrew Andrew procedure (1000units/500ml field MD B[place]NS NS) 10:57:42 Radial Cocktail added 1 Israel Wood used for (Verapamil to syringe Andrew Andrew procedure 2mg/Nitro field MD [place] 400mcg/Heparin 1500units) 11:10:01 Fentanyl I.V. 50 mcg Israel Rose Marie for Andrew Prosper sedation MD T[place]LEY 11:10:50 Versed I.V. 2 mg Israel Rose Marie for Andrew Prosper sedation MD [place]LEY 11:18:09 Versed I.V. 2 mg Israel Rose Marie for Andrew Prosper sedation MD [place]LEY 11:18:13 Fentanyl I.V. 50 mcg Israel Rose Marie for Andrew Prosper sedation MD TALLEYob/gyn Log Time Note 10:31:16 Arrival Date: 10/03/2019 12:00:00 AM 10:31:17 Admit Source: Other 10:31:22 Insurance Payor : Private health insurance 10:31:42 Patient Height : 66 inches 10:32:32 Lab Result : BUN 11 mg/dl 10:32:32 Lab Result : eGFR NONAFRICAN 61.73532 ml/min 10:32:32 Lab Result : Hemoglobin 14 g/dl 10:32:32 Lab Result : Creatinine 1 mg/dl 10:32:38 Diagnostic Cath Status : Elective 10:33:35 Procedure Status Urgent Heart Cath (IP). 10:37:52 H&P Date Dictated: 10/02/2019 Within 30 days and on chart., H&P Addendum completed by physician on day of procedure. (MUST COMPLETE FOR ALL OUTPATIENTS). 10:38:53 Patient allergic to Other allergyLISINOPRIL 10:39:28 Informed consent obtained and on chart 10:41:45 Patient Weight : 228 lbs 10:42:59 Risk of Mortality: .1 10:43:01 Risk of blood transfusion: .1 10:43:03 Risk of PAULIE: .3 10:43:16 Tiff Luong RT(R) (CV) sent for patient. Start room use. 10:43:22 Time tracking: Regular hours (M-F 7:00 - 5:00) 10:43:26 Plan of Care:Hemodynamics will remain stable., Cardiac rhythm will remain stable., Comfort level will be maintained., Respiratory function will remain adequate., Patient/ family verbilizes understanding of procedure., Procedure tolerated without complication., Recovers from procedure without complications.. 10:51:14 Patient received from Med II to CCL 1 Alert and oriented. Tansferred to table in Supine position. 10:51:15 Warm blankets applied, and richmond hugger turned on for patient comfort. 10:51:15 Correct patient and procedure confirmed by team. 10:51:16 ECG and BP/O2 sat monitors applied to patient. 10:51:18 Full Disclosure recording started 10:51:19 Pre-procedure instructions explained to patient. 10:51:19 Pre-op teaching completed and patient verbalized understanding. 10:51:21 Family in patients room. 10:51:22 Patient NPO since Midnight. 10:51:24 Is patient on blood thinner?No 10:51:26 Patient diabetic? No. 10:51:30 Patient not . Patient has had hysterectomy. 10:51:34 Previous problem with sedation/anesthesia? No ? 10:51:35 Snore? Yes 10:51:36 Sleep apnea? No 10:51:37 Deviated septum? No 10:51:38 Opens mouth fully? Yes 10:51:39 Sticks out tongue? Yes 10:51:40 Airway obstruction? No ? 10:51:42 Dentures? No ? 10:51:52 Pre procedure: right dorsailis pedis pulse 1+ Palpable, but thready & weak; easily obliterated 10:51:55 Patient pain scale 0/10 ?. 10:52:06 IV patent on arrival in left forearm with 0.9% NaCl at [facility]. 10:52:09 Lab results completed and on chart. 10:57:09 Vital chart was started 10:57:19 0.9% NaCl 100 ml/hr I.V. was administered by Rose Marie Cheng RN; used for procedure; Verbal order read back and verified. 10:57:27 Oxygen 2 l/min etCO2 Nasal cannula was administered by Rose Marie Cheng RN; used for procedure; Verbal order read back and verified. 10:57:32 Lidocaine 2% 20ml vial added to field was administered by Israel Morales MD; for local anesthetic; Verbal order read back and verified. 10:57:36 Heparin Flush Bag (1000units/500ml NS) 2 bags added to field was administered by Israel Morales MD; used for procedure; Verbal order read back and verified. 10:57:42 Radial Cocktail (Verapamil 2mg/Nitro 400mcg/Heparin 1500units) 1 syringe added to field was administered by Israel Morales MD; used for procedure; Verbal order read back and verified. 11:00:02 Right Radial & Right Groin area was prepped with chlora-prep and draped in sterile fashion 11:01:03 Alarms reviewed by R. N. 11:01:04 Sharps counted by scrub and verified by R.N. 11:01:10 Use device set Radial Dx or PCI 11:01:11 ACIST Syringe (19075) opened to sterile field. 11:01:12 Medline Cath Pack ([id number]) opened to sterile field. 11:01:13 Bag Decanter () opened to sterile field. 11:01:13 ACIST Hand Control (25057) opened to sterile field. 11:01:14 ACIST Manifold (86246) opened to sterile field. 11:01:15 MBrace Wrist Support ([id number]) opened to sterile field. 11:01:19 EMERALD Guide Wire (329-168) opened to sterile field. 11:01:20 SHEATH 6FR RAIN (5592422) opened to sterile field. 11:09:10 Physician arrived 11:: --------ALL STOP TIME OUT------ 11::12 Final Timeout: patient, procedure, and site verified with staff and physician. All members of the team are in agreement. 11:09:15 Right Radial & Right Groin site verified by team. 11:09:23 Fire Safety Assessment: A--An alcohol-based skin anteseptic being used preoperatively., C--Open oxygen or nitrous oxide is being used., D--An ESU, laser, or fiber-optic light is being used. 11:09:29 Physical assessment completed. ASA score P 2 - A patient with mild systemic disease as per Israel Morales MD. 11:09:38 2) 60-89 Mildly reduced kidney function, and other findings (as for stage 1) point to kidney disease. 11:09:44 Maximum allowable contrast dose (3.7 X eGFR X 0.75)169 ml. 11:10:01 Fentanyl 50 mcg I.V. was administered by Rose Marie Cheng RN; for sedation; Verbal order read back and verified. 11:10:02 Sedation plan: IV Moderate Sedation Medication:Versed, Fentanyl 11:10:50 Versed 2 mg I.V. was administered by Rose Marie Cheng RN; for sedation; Verbal order read back and verified. 11:11:49 Baseline sample Acquired. 11:11:56 Baseline sample Acquired. 11:12:03 Baseline sample Acquired. 11:12:12 Rhythm: sinus rhythm 11:15:24 Procedure started. 11:15:31 Local anesthetic to right radial artery with Lidocaine 2% by Israel Morales MD.INITIAL ACCESS ONLY 11:16:14 A 6 Fr Short sheath was inserted into the Right Radial artery 11:18:09 Versed 2 mg I.V. was administered by Rose Marie Prosper RN; for sedation; Verbal order read back and verified. 11:18:13 Fentanyl 50 mcg I.V. was administered by Rose Marie Cheng RN; for sedation; Verbal order read back and verified. 11:20:10 A DIAGNOSTIC Nottingham 110cm 5 Fr catheter (088026) was advanced over the wire and used for Procedure. 11:22:12 LV gram done using TRONCOSO 11:22:28 EF : 55 % 11:22:39 LV hemodynamics recorded. 11:22:42 Injector settings: Ml/sec: 5, Volume: 15, 11:22:47 RCA angiography performed. 11::57 Injector settings: Ml/sec: 3, Volume: 6, 11:23:43 Catheter removed. 11:24:37 A DIAGNOSTIC JL 3.5 5Fr catheter ([id number]) was advanced over the wire and used for Left Coronary Angiography. 11:25:14 LCA angiography performed. 11:25:19 Injector settings: Ml/sec: 3, Volume: 6, 11:26:09 ZEPHYR REGULAR TR BAND (191197) opened to sterile field. 11:26:12 Catheter removed. 11:26:32 Sheath removed intact; hemostasis achieved with Mechanical Compression to the Right Radial artery. 11:26:36 Procedure ended.(Physican Out) 11:27:04 Fluoroscopy time 02.80 minutes. 11:27:10 Fluoroscopy dose: 437 mGy 11:27:10 Flurop Dose total: 437 11:27:16 Dose Area Product 20835 mGy/cm. 11:27:24 Contrast amount:Isovue 300 35ml. 11:27:27 Maximum allowable dose exceeded? No. 11:27:29 Sharps counted by scrub and verified by R.N. 11:27:34 [place]erington band inflated with 10cc of air. 11:27:42 Post right radial artery:stable 11:27:47 Post-procedure physical assessment completed. ASA score P 2 - A patient with mild systemic disease as per Israel Morales MD. 11:27:50 Post procedure rhythm: unchanged. 11:27:54 Estimated blood loss: 5 ml 11:27:55 Post procedure instruction explained to patient.Patient verbalizes understanding. 11:27:57 Patient needs reinforcement of post procedure teaching. 11:28:15 Procedure type changed to Cath procedure, Diagnostic procedure, LHC, LHC w/Coronaries, Sedation Charges, Moderate Sedation up to 15 minutes 11:28:18 Procedure and supply charges have been captured, reviewed, submitted and are correct. 11:28:48 Procedure Complication : No complications 11:28:51 Vital chart was stopped 11:28:54 [facility] Findings: mild to moderate CAD (<70%) 11:28:58 Operative report dictated upon procedure completion. 11:28:59 See physician's report for complete and final results. 11:29:01 Report given to [facility]. 11:29:16 Patient transfered to [facility] with Bed. 11:29:19 Procedure ended. 11:29:19 Full Disclosure recording stopped 11:29:24 End room use (Document Last) Device Usage Item Name Manufacture Quantity Catalog Hospital Part Current Minima l Lot# / Number Charge Number Stock Stock Serial# Code ACIST Acist 1 41510 [id number] 643920 [id number] 20 Syringe Medical (95298) Systems Inc Medline Medline 1 [id number] 65919 385093 5 Cath Pack ([id number]) Bag Microtek 1 565135 08327 836790 5 Decanter Medical Inc. () ACIST Hand Acist 1 17705 582156 129771 107972 5 Control Medical (88222) Systems Inc ACIST Acist 1 67685 865971 276272 139596 5 Manifold Medical (20558) Systems Inc MBrace Advanced 1 140-0250-00 947670 60780 362445 5 Wrist Vascular Support Dynamics ([id number]) EMERALD Cardinal 1 502-455 723116 050646 445146 5 Guide Wire Health (502455) SHEATH 6FR Cardinal 1 [id number] 525802 3168308 391354 5 [facility] (6523617) DIAGNOSTIC Terumo 1 40-5013 216440 753932 740183 5 Nottingham 110cm 5 Fr catheter (948045) DIAGNOSTIC Cardinal 1 [id number] 832274 523520 593948 5 JL 3.5 5Fr Health catheter (463579G) ZEPHYR Cardinal 1 322298 616614 6375030 222955 5 REGULAR TR Health BAND (672657) Signature Audit [place] Stage Time Signature Unsigned Intra-Procedure 10/03/2019 Tfif 11:29:52 AM Cherise RT(R) (CV) Intra-Procedure 10/03/2019 Rose Marie Cheng 11:30:21 AM RN Intra-Procedure 10/03/2019 Israel Ray 11:31:00 AM Heath B[facility]NS [facility] [address] [place] [address]
[~2019-10-02 11:29] MED LIST: BAYER CHEWABLE81 MG PO; LISINOPRIL10 MG PO; NAPROSYN500 MG PO; NAPROXEN SODIU550 M1 PO; OMEPRAZOLE20 M1 PO; PLAVIX75 MG PO; PROZAC10 MG PO
[2019-10-02] MEDS ORDERED: TOPROL XL50 MG PO (11:35)
[2019-10-02 12:06] LABS: BASOPHILS 0.3 % (0-2); EOSINOPHILS 3.3 % (0-7); HEMATOCRIT 45.2 % (36.0-48.0); HEMOGLOBIN 14.3 g/dL (12-16); IMMATURE GRANULOCYTES 0.1 % (0-5); LYMPHOCYTES 37.5 % (15-50); MCH 31.4 pg (26.0-34.0); MCHC 31.6 g/dL (31.0-37.0); MCV 99.1 fL (80.0-100.0); MEAN PLATELET VOLUME 10.8 fL (7.4-10.4); MONOCYTES 5.5 % (2-11); NEUTROPHILS 53.3 % (40-80); RBC 4.56 10x6/uL (4.00-5.40); RDW 14.2 % (11.5-14.5); WBC 7.9 10x3/uL (4.8-10.8)
[2019-10-02 12:08] LABS: PLATELET COUNT 299 10x3/uL (130-400)
[2019-10-02 12:16] LABS: APTT 34.5 SECONDS (22.8-39.4)
[2019-10-02 12:19] LABS: CALC OSMOLALITY 280 mosm/kg (275-300); CALCIUM 8.4 mg/dL (8.5-10.1); CHLORIDE - SERUM 105 mmol/L (98-107); CREATININE - SERUM 0.9 mg/dL (0.6-1.3); GLUCOSE 137 mg/dL (74-106); POTASSIUM - SERUM 4.4 mmol/L (3.5-5.1); SODIUM 140 mmol/L (136-145); UREA NITROGEN 12 mg/dL (7-18); eGFR NON AFRICAN AMERICAN 69 mL/min (90-120)
[2019-10-02 12:25] LABS: INR 0.97 (0.85-1.17); PROTIME 12.8 SECONDS (11.6-15.0)
[2019-10-02 12:28] LABS: BILIRUBIN NEGATIVE (NEGATIVE); GLUCOSE NEGATIVE (NEGATIVE); KETONE NEGATIVE (NEGATIVE); NITRITE NEGATIVE (NEGATIVE); UROBILINOGEN NORMAL (NORMAL)
[2019-10-02 12:30] VITALS: BP 138/60
[2019-10-02 12:35] LABS: ALBUMIN 3.7 g/dL (3.4-5.0); ALKALINE PHOSPHATASE 89 U/L (30-120); ALT (SGPT) 42 U/L (10-68); BILIRUBIN - TOTAL 0.27 mg/dL (0.2-1.3); CKMB 1.5 U/L (0.0-3.6); CREATINE KINASE 153 UL (21-215); MAGNESIUM - SERUM 1.8 mg/dL (1.8-2.4); PROTEIN - SERUM 6.6 g/dL (6.4-8.2); TROPONIN-I < 0.017 ng/mL (0.000-0.060)
[2019-10-02 13:30] VITALS: BP 135/68
[2019-10-02 14:30] VITALS: BP 146/75
[2019-10-02 14:32] LABS: CKMB 1.2 U/L (0.0-3.6); CREATINE KINASE 122 UL (21-215)
[2019-10-02 14:46] LABS: TROPONIN-I < 0.017 ng/mL (0.000-0.060)
[2019-10-02 15:53] VITALS: BP 138/63; BMI 36.8
--- NOTE | 2019-10-02 15:59 | NUR ---
ARRIVE TO ROOM VIA WHEELCHAIR FROM ER. ALERT AND ORIENTED X4. AMBULATE TO BED. GAIT STEADY. REFUSE SCDs. NO TELEMETRY TO PUT ON. CONTINUE ADMISSION PROCESS AND SAFETY PRECAUTIONS.
[2019-10-02 17:29] VITALS: Ht 167.6 cm; Wt 103.4 kg
--- NOTE | 2019-10-02 18:31 | NUR ---
ALERT AND ORIENTED X4. SITTING UP IN BED. CONSENTS FOR [employer]OR SAL[employer]OCIATE SIGNED ON CHART. DENIES ANY NEEDS. CONTINUE PLAN OF CARE AND SAFETY PRECAUTIONS.
[2019-10-02 20:00] VITALS: BP 147/57
[2019-10-02 20:21] LABS: BASOPHILS 0.2 % (0-2); EOSINOPHILS 2.5 % (0-7); HEMATOCRIT 43.4 % (36.0-48.0); HEMOGLOBIN 13.8 g/dL (12-16); IMMATURE GRANULOCYTES 0.3 % (0-5); MCH 31.4 pg (26.0-34.0); MCHC 31.8 g/dL (31.0-37.0); MCV 98.9 fL (80.0-100.0); MEAN PLATELET VOLUME 10.4 fL (7.4-10.4); MONOCYTES 5.6 % (2-11); NEUTROPHILS 50.4 % (40-80); PLATELET COUNT 249 10x3/uL (130-400); RBC 4.39 10x6/uL (4.00-5.40); RDW 14.3 % (11.5-14.5)
[2019-10-02 20:25] LABS: ALT (SGPT) 38 U/L (10-68); CALC OSMOLALITY 279 mosm/kg (275-300); CALCIUM 8.5 mg/dL (8.5-10.1); CHLORIDE - SERUM 105 mmol/L (98-107); CHOL - HDL RATIO 4.6 ratio (2.3-4.1); CHOLESTEROL, TOTAL 179 mg/dL (0-200); CKMB 1.1 U/L (0.0-3.6); CREATINE KINASE 99 UL (21-215); CREATININE - SERUM 1.1 mg/dL (0.6-1.3); GLUCOSE 127 mg/dL (74-106); HDL CHOLESTEROL 39 mg/dL (32-96); LDL CHOLESTEROL 116 mg/dL (0-100); SODIUM 140 mmol/L (136-145); TRIGLYCERIDE 124 mg/dL (30-200); UREA NITROGEN 10 mg/dL (7-18); eGFR NON AFRICAN AMERICAN 55 mL/min (90-120)
[2019-10-02 20:26] LABS: POTASSIUM - SERUM 3.6 mmol/L (3.5-5.1); TROPONIN-I < 0.017 ng/mL (0.000-0.060)
[2019-10-03] VITALS: BP 135/59
[2019-10-03 02:55] LABS: CKMB 0.7 U/L (0.0-3.6); CREATINE KINASE 91 UL (21-215); TROPONIN-I < 0.017 ng/mL (0.000-0.060)
[2019-10-03 04:00] VITALS: BP 113/65
[2019-10-03 06:15] LABS: BASOPHILS 0.1 % (0-2); EOSINOPHILS 2.6 % (0-7); HEMATOCRIT 44.3 % (36.0-48.0); IMMATURE GRANULOCYTES 0.2 % (0-5); LYMPHOCYTES 39.9 % (15-50); MCH 31.3 pg (26.0-34.0); MCHC 31.6 g/dL (31.0-37.0); MCV 98.9 fL (80.0-100.0); MEAN PLATELET VOLUME 10.2 fL (7.4-10.4); NEUTROPHILS 51.2 % (40-80); PLATELET COUNT 264 10x3/uL (130-400); RBC 4.48 10x6/uL (4.00-5.40); RDW 14.3 % (11.5-14.5); WBC 8.2 10x3/uL (4.8-10.8)
[2019-10-03 06:43] LABS: ALBUMIN 3.4 g/dL (3.4-5.0); ANION GAP 9.2 mmol/L (8-16); BILIRUBIN - TOTAL 0.43 mg/dL (0.2-1.3); CALCIUM 8.5 mg/dL (8.5-10.1); CARBON DIOXIDE 30.5 mmol/L (21.0-32.0); POTASSIUM - SERUM 3.7 mmol/L (3.5-5.1); PROTEIN - SERUM 6.6 g/dL (6.4-8.2)
--- NOTE | 2019-10-03 09:35 | NUR ---
I have reviewed this patient and I concur with the Shift Assessment completed by the Licensed Practical Nurse today this shift.
--- NOTE | 2019-10-03 15:03 | NUR ---
DC GIVEN TO PT
== END 2019-10-03 15:39 | disposition home or self-care (01) ==
LOC: D.ER 11:29 → D.M2 13:37 → D.ER 14:44 → OBSVTIME 14:57 → D.M2 10-03 15:39
PROVIDERS: Family Medicine; Internal Medicine Interventional Cardiology; ADMIT Family Medicine; ATTEND Family Medicine
DX: I25.110 Atherosclerotic heart disease of native coronary artery with unstable angina pectoris (principal); I48.91 Unspecified atrial fibrillation; K21.9 Gastro-esophageal reflux disease without esophagitis; I10 Essential (primary) hypertension; E78.5 Hyperlipidemia, unspecified; F17.203 Nicotine dependence unspecified, with withdrawal; R00.2 Palpitations